=== PATIENT | male | born 1975 | race Caucasian/White ===

== ENCOUNTER 2017-03-30 19:57 | Emergency (ER) | payer OTHER ==
--- NOTE | 2017-03-30 20:45 | ERNOTE ---
Chest Pain/Cardiac HPI Chief Complaint: Tachycardia Time Seen by Provider: 03/30/17 20:45 Source: patient, RN notes reviewed Immunizations: IMMUNIZATION HX Immunizations Up to Date Yes History of Influenza Vaccine Yes Hx Pneumococcal Vaccination No Allergies/Adverse Reactions: Allergies sulfamethoxazole [From Bactrim] Allergy (Intermediate, Verified 03/30/17 20:06) Hives trimethoprim [From Bactrim] Allergy (Intermediate, Verified 03/30/17 20:06) Hives Home Medications: HOME MEDICATIONS Diltiazem HCl [Cardizem] 30 mg PO TID #90 tablet 03/12/15 [Last Taken Unknown] Narrative: Patient with history of intermittent atrial fibrillation, presents with complaints of being in A fib again. He was here two years ago, has had very brief episodes since then. He was first diagnosed 9 years ago while living [place]. His normal heart rate is in the 50's and 60's. He states that if he exercises regularly, he doesn't go into A fib, but he hasn' t exercised as much the last 2-3 weeks. Timing: constant Severity/Quality: moderate Location: central Chest Pain Radiation: no radiation Activities at Onset: rest Modifying Factors - Improves: Present: exercise Modifying Factors - Worsens: Present: rest Nitro Today/Relief: no nitro taken today Aspirin Treatment Today: no aspirin today Associated Symptoms: Present: palpitations Review of Systems - Review of Systems Constitutional: Absent: recent illness, fever, chills EYE: Present: no symptoms reported ENT: Absent: ear pain, sore throat Respiratory: Absent: shortness of breath, cough Cardiology: Present: palpitations. Absent: chest pain Gastrointestinal/Abdominal: Absent: nausea, vomiting, diarrhea Genitourinary: Present: no symptoms reported Musculoskeletal: Present: no symptoms reported Skin: Present: no symptoms reported Neurological: Present: no symptoms reported Endocrine: Present: no symptoms reported Hematologic/Lymphatic: Present: no symptoms reported - Patient's Past Medical History Patient History - Medical: No pertinent hx Patient History - Cardiac/Respiratory: Atrial Fibrillation Patient History - Cancer: No Hx of Cancer Patient History - Surgical Procedures: No surgical history Patient History - Other: None - Social History Living Situations: home Abuse History: No History of abuse Psych History: No pertinent hx Smoking Status: Never smoker Have you smoked in the past 12 months: No Do you dip or chew tobacco: No Alcohol Use: occasionally Drug Use: none - Immunizations Immunizations Up to Date: Yes Hx Pneumococcal Vaccination: No History of Influenza Vaccine: Yes Physical Exam - Physical Exam General Appearance: Present: wd/wn, alert, no apparent distress Head Exam: Present: normal inspection, no evidence of injury Eye Exam: Normal inspection: bilateral, PERRL: bilateral, EOMI: bilateral Ears, Nose, Throat: Present: normal ENT inspection Neck: Present: normal inspection, nontender Respiratory: Present: no respiratory distress, normal breath sounds, no accessory muscle use, chest nontender, lungs clear Cardiovascular/Chest: Present: no murmur, irregularly irregular Gastrointestinal/Abdominal: Present: normal bowel sounds, nontender, nondistended, soft Back Exam: Present: normal inspection, normal range of motion Extremity Exam: Present: normal inspection, non-tender, normal range of motion, no edema Neurological Exam: Present: alert, oriented, normal mood/affect, no motor/ sensory deficits Skin Exam: Present: normal color, warm/dry ED Progress - Vital Signs Patient's Vital Signs:: I have reviewed the patient's vital signs. Vital Signs: Vital Signs 03/30/17 03/30/17 03/30/17 20:01 20:07 20:29 Temperature 36.3 C L Pulse Rate 103 H 108 H 81 Respiratory 12 13 Rate Blood Pressure 150/84 134/85 O2 Sat by Pulse 97 97 Oximetry - EKG EKG: supraventricular tachycardia, atrial fibrillation EKG read: Interp. by me - Progress/Reassessment Chief Complaint: Tachycardia Progress:: Improved Progress Note-Subjective: 03/31/17 06:28 Patient got up to go to the bathroom, felt his rhythm convert, came back, we got ready to inject the cardizem when he announced he thought he was back into his normal rhythm, and he was. Departure Clinical Impression: Atrial fibrillation with tachycardic ventricular rate - Departure Disposition: Home self-care Condition: Good Instructions: Atrial Fibrillation, [id number] Additional Instructions: Take your diltiazem as needed if you go back into atrial fibrillation. Referrals: Joshua Lopez MD [Staff Physician] - (3-5 days)
[2017-03-30] MEDS ORDERED: DILTIAZEM HCL 5 MG/ML VIAL IV ONE ×2 (21:14→21:15)
[2017-03-30 22:26] VITALS: BP 126/77
== END 2017-03-30 22:00 | disposition home or self-care (01) ==
LOC: ER 19:57
DX: I48.91 Unspecified atrial fibrillation (principal)